=== PATIENT | female | born 1975 | race Hispanic/Latino ===

== ENCOUNTER 2018-09-20 22:59 | Emergency (ER) | payer OTHER ==
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
[2018-09-20] MEDS ORDERED: Silver Sulfadiazine 1% CREAM (50 gm) ONE (23:24)
[2018-09-20] MEDS: Silver Sulfadiazine 1% Cream (20 gm) TOP STA (23:25)
[2018-09-20] MEDS: Tdap Vaccine 0.5 ml Vial (10-64 yrs) IM ONE (23:27)
[2018-09-21 00:08] VITALS: BP 122/78; PULSE 78; RESP 18; TEMP 98
[2018-09-22 22:21] VITALS: O2SAT 98
== END 2018-09-21 00:15 | disposition home or self-care (01) ==
LOC: H.ER 22:59
DX: T23.202A Burn of second degree of left hand, unspecified site, initial encounter (principal); X15.3XXA Contact with hot saucepan or skillet, initial encounter; Y92.000 Kitchen of unspecified non-institutional (private) residence as the place of occurrence of the external cause